=== PATIENT | female | born 1980 | race Caucasian/White ===

== ENCOUNTER 2017-02-10 16:21 | Emergency (ER) | payer OTHER ==
--- NOTE | 2017-02-10 17:37 | DIAGNOSTIC IMAGING REPORT ---
PROCEDURE: XR CHEST 2 VIEW INDICATION: CHEST PAIN TECHNIQUE: PA and lateral views. COMPARISON: None. FINDINGS: Lungs are clear. Heart and mediastinum are normal. Thorax is normal. IMPRESSION: 1. Negative chest.
--- NOTE | 2017-02-10 18:19 | ED NURSING NOTES ---
Clinical Report - Nurses [facility] [address] [place] [address] 02/10/2017 16:23 [id number] Triage time 16:Feb 10 2017. Acuity: LEVEL 3. Chief Complaint: CHEST PAIN. Alert. No acute distress. BLANCA COMA SCORE: [place] Coma Scale: 15- eyes open spontaneously (4); best verbal response- oriented x 4 (5); best motor response- obeys commands (6). --16:32 Radha Meyer R.N. 16:26 02/10/17. BP: 128/69. HR: 88. RR: 11. O2 saturation: 99%. Temp: 98.2 F. Pain level now: 07/13. --16:32 Radha Meyer R.N. Weight: 96.1 kg stated. Height/Length: 65 inches Per Patient. BMI: 35.3. --16:30 Radha Meyer R.N. Medications Hydrocodone-Acetaminophen Oral. --16:27 Radha Meyer R.N. Estradiol Oral. --16:28 Radha Meyer R.N. CeleXA Oral. --16:28 Radha Meyer R.N. Medication/allergy information source: the patient. --16:32 Radha Meyer R.N. Allergies Tramadol. --16:28 Radha Meyer R.N. Percocet. --16:29 Radha Meyer R.N. History Arrived by private vehicle. Historian: patient. Accompanied by family. Onset. (3 days ago). She has had difficulty breathing, nausea and a cough. 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 Seen within the last 30 days in a clinic; labs done- CBC, chemistries and other tests; EKG done. (hydrocodone). PAST MEDICAL HX: Immunizations: up-to-date. SOCIAL HX: Current every day heavy tobacco smoker (cigarette)- 1 pack per day. No alcohol use or drug use. No infectious disease exposure. SELF HARM ASSESSMENT: A self harm assessment was performed. The patient answered "no" to the question "Do you have thoughts of harming or killing yourself?". FALL RISK ASSESSMENT: Fall risk assessment completed. No fall risk identified. NUTRITIONAL RISK ASSESSMENT: The nutritional risk assessment revealed no deficiencies. FUNCTIONAL ASSESSMENT: Functional assessment: no impairments noted. LEARNING NEEDS ASSESSMENT: The learning needs assessment revealed no barriers. ABUSE ASSESSMENT: Abuse assessment: The patient was asked "Do you feel safe in your home?". SKIN INTEGRITY ASSESSMENT: Skin integrity risk assessment completed. No skin integrity risk identified. --16:32 Radha Meyer R.N. PROBLEMS: Sick Contact. Constipation. Abdominal Pain. Hormone issues. Cholecystitis. Abd pain. --16:30 Radha Meyer R.N. ADDITIONAL SURGERIES: Cholecystectomy. Hernia Repair. Hysterectomy. Knee Surgery. Tubal Ligation. --16:30 Radha Meyer R.N. Interventions ID band on patient. To room. --16:32 Radha Meyer R.N. PHYSICAL ASSESSMENT GENERAL / NEURO / PSYCH: Alert. Oriented X 4. Appears in pain. RESPIRATORY: Respirations not labored. Mid- and lower sternal tenderness. Breath sounds within normal limits. CVS: Heart sounds within normal limits. Capillary refill less than 2 seconds. GI / : Abdomen soft and nontender. EXTREMITIES: No lower extremity edema. SKIN: Skin is warm and dry. --16:34 Radha Meyer R.N. NURSING PROGRESS NOTES quality assurance monitor and pulse oximeter placed on patient; quality assurance monitor- Lead II; monitor alarms on. Patient gowned. Head of bed elevated. Patient identifiers checked. Call light placed in reach. Side rails up x 1. Bed placed in lowest position. Brakes of bed on. --16:35 Radha Meyre R.N. EKG time: (1722). EKG was ordered, performed by a tech and shown to the ED physician. --17:21 Yasmin Thomas ER Tech1 18:27 02/10/2017 Hydrocodone-APAP (Hydrocodone-Acetaminophen) PO 5/325 mg Tablets 1 tab given. Allergies verified, confirmed 5 rights and sedative warning given to the patient. --18:27 Radha Meyer R.N. DISPOSITION / DISCHARGE Departure time: 18:Feb 10 2017. Condition at departure: unchanged. No learning barriers present. Reviewed medication(s) side effects, precautions, dosing and course information. Prescription(s) given to the patient. Reviewed referral to a primary care physician. Patient verbalized understanding. Written instructions provided in Montenegrin. Discharge instructions not provided and reviewed with the patient. The patient was discharged home and accompanied by spouse. She left the Emergency Department ambulatory and via private vehicle. Spouse driving. FALL RISK ASSESSMENT: Fall risk assessment completed. No fall risk identified. --18:30 Radha Meyer R.N. 18:28 02/10/17. BP: 127/72. HR: 77. RR: 16. O2 saturation: 95%. Pain level now: 10. --18:30 Radha Meyer R.N. Locked/Released at 02/11/2017 13:26 by Radha Meyer R.N.
--- NOTE | 2017-02-10 18:19 | ED ORDER SUMMARY ---
..... Patient: CHRISTINA LEOS OrderSheet [facility] VisitID: [id number] [address] [place] [address] 36y, F Registration Date/Time: 02/10/2017 ORDER SHEET Weight: 96.1 kg (stated) Allergies: Tramadol, Percocet GENERAL ORDERS: Chest 2V Urgent (16:53 02/10/2017 HBivens A.R.N.P.) (Ack 16:58 TBergley) (17:34 LNations ER Tech1) EKG - ER Stat (16:53 02/10/2017 HBivens A.R.N.P.) (Ack 16:58 TBergley) (17:06 LNations ER Tech1) MEDICATION ORDERS: Hydrocodone-APAP PO 5/325 mg (NOW, HIGH ALERT MEDICATION) (18:17 02/10/2017 HBivens A.R.N.P.) (18:27 Lidia Crawford.NLavinia) IV FLUIDS: ORDER SHEET NOTES: [Electronically signed by Lottie BarlowR.N.PLavinia (19:15 02/10/2017)] [Electronically signed by Radha Meyer R.N. (13:26 02/11/2017)] [Electronically locked/signed by Radha Meyer R.N. (13:26 02/11/2017)]
--- NOTE | 2017-02-10 18:19 | ED NURSING NOTES ---
Clinical Report - Nurses [facility] [address] [place] [address] 02/10/2017 16:23 [id number] Triage time 16:Feb 10 2017. Acuity: LEVEL 3. Chief Complaint: CHEST PAIN. Alert. No acute distress. BLANCA COMA SCORE: [place] Coma Scale: 15- eyes open spontaneously (4); best verbal response- oriented x 4 (5); best motor response- obeys commands (6). --16:32 Radha Meyer R.N. 16:26 02/10/17. BP: 128/69. HR: 88. RR: 11. O2 saturation: 99%. Temp: 98.2 F. Pain level now: 07/13. --16:32 Radha Meyer R.N. Weight: 96.1 kg stated. Height/Length: 65 inches Per Patient. BMI: 35.3. --16:30 Radha Meyer R.N. Medications Hydrocodone-Acetaminophen Oral. --16:27 Radha Meyer R.N. Estradiol Oral. --16:28 Radha Meyer R.N. CeleXA Oral. --16:28 Radha Meyer R.N. Medication/allergy information source: the patient. --16:32 Radha Meyer R.N. Allergies Tramadol. --16:28 Radha Meyer R.N. Percocet. --16:29 Radha Meyer R.N. History Arrived by private vehicle. Historian: patient. Accompanied by family. Onset. (3 days ago). She has had difficulty breathing, nausea and a cough. 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 Seen within the last 30 days in a clinic; labs done- CBC, chemistries and other tests; EKG done. (hydrocodone). PAST MEDICAL HX: Immunizations: up-to-date. SOCIAL HX: Current every day heavy tobacco smoker (cigarette)- 1 pack per day. No alcohol use or drug use. No infectious disease exposure. SELF HARM ASSESSMENT: A self harm assessment was performed. The patient answered "no" to the question "Do you have thoughts of harming or killing yourself?". FALL RISK ASSESSMENT: Fall risk assessment completed. No fall risk identified. NUTRITIONAL RISK ASSESSMENT: The nutritional risk assessment revealed no deficiencies. FUNCTIONAL ASSESSMENT: Functional assessment: no impairments noted. LEARNING NEEDS ASSESSMENT: The learning needs assessment revealed no barriers. ABUSE ASSESSMENT: Abuse assessment: The patient was asked "Do you feel safe in your home?". SKIN INTEGRITY ASSESSMENT: Skin integrity risk assessment completed. No skin integrity risk identified. --16:32 Radha Meyer R.N. PROBLEMS: Sick Contact. Constipation. Abdominal Pain. Hormone issues. Cholecystitis. Abd pain. --16:30 Radha Meyer R.N. ADDITIONAL SURGERIES: Cholecystectomy. Hernia Repair. Hysterectomy. Knee Surgery. Tubal Ligation. --16:30 Radha Meyer R.N. Interventions ID band on patient. To room. --16:32 Radha Meyer R.N. PHYSICAL ASSESSMENT GENERAL / NEURO / PSYCH: Alert. Oriented X 4. Appears in pain. RESPIRATORY: Respirations not labored. Mid- and lower sternal tenderness. Breath sounds within normal limits. CVS: Heart sounds within normal limits. Capillary refill less than 2 seconds. GI / : Abdomen soft and nontender. EXTREMITIES: No lower extremity edema. SKIN: Skin is warm and dry. --16:34 Radha Meyer R.N. NURSING PROGRESS NOTES phototypesetting equipment monitor and pulse oximeter placed on patient; playground monitor- Lead II; monitor alarms on. Patient gowned. Head of bed elevated. Patient identifiers checked. Call light placed in reach. Side rails up x 1. Bed placed in lowest position. Brakes of bed on. --16:35 Radha Meyer R.N. EKG time: (1722). EKG was ordered, performed by a tech and shown to the ED physician. --17:21 Yasmin Thomas ER Tech1 18:27 02/10/2017 Hydrocodone-APAP (Hydrocodone-Acetaminophen) PO 5/325 mg Tablets 1 tab given. Allergies verified, confirmed 5 rights and sedative warning given to the patient. --18:27 Radha Meyer R.N. DISPOSITION / DISCHARGE Departure time: 18:Feb 10 2017. Condition at departure: unchanged. No learning barriers present. Reviewed medication(s) side effects, precautions, dosing and course information. Prescription(s) given to the patient. Reviewed referral to a primary care physician. Patient verbalized understanding. Written instructions provided in [place]ian. Discharge instructions not provided and reviewed with the patient. The patient was discharged home and accompanied by spouse. She left the Emergency Department ambulatory and via private vehicle. Spouse driving. FALL RISK ASSESSMENT: Fall risk assessment completed. No fall risk identified. --18:30 Radha Meyer R.N. 18:28 02/10/17. BP: 127/72. HR: 77. RR: 16. O2 saturation: 95%. Pain level now: 10. --18:30 Radha Meyer R.N. Locked/Released at 02/11/2017 13:26 by Radha Meyer R.N.
--- NOTE | 2017-02-10 18:19 | ED ORDER SUMMARY ---
..... Patient: CHRISTINA LEOS OrderSheet [facility] VisitID: [id number] [address] [place] [address] 36y, F Registration Date/Time: 02/10/2017 ORDER SHEET Weight: 96.1 kg (stated) Allergies: Tramadol, Percocet GENERAL ORDERS: Chest 2V Urgent (16:53 02/10/2017 HBivens A.R.N.P.) (Ack 16:58 TBergley) (17:34 LNations ER Tech1) EKG - ER Stat (16:53 02/10/2017 HBivens A.R.N.P.) (Ack 16:58 TBergley) (17:06 LNations ER Tech1) MEDICATION ORDERS: Hydrocodone-APAP PO 5/325 mg (NOW, HIGH ALERT MEDICATION) (18:17 02/10/2017 HBivens A.R.N.P.) (18:27 Lidia Crawford.NLavinia) IV FLUIDS: ORDER SHEET NOTES: [Electronically signed by Lottie BarlowR.N.PLavinia (19:15 02/10/2017)] [Electronically signed by Radha Meyer R.N. (13:26 02/11/2017)] [Electronically locked/signed by Radha Meyer R.N. (13:26 02/11/2017)]
--- NOTE | 2017-02-10 18:19 | ED CLINICAL REPORT ---
Clinical Report - Physicians/Mid Levels [facility] [address] [place] [address] 02/10/2017 16:23 Patient: CHRISTINA LEOS Time Seen: 1640; initial patient contact, initial documentation, patient care assumed. Arrived- By private vehicle. Historian- patient. HISTORY OF PRESENT ILLNESS Chief Complaint: CHEST PAIN and DISCOMFORT. At its maximum, severity described as severe. When seen in the E.D., severity described as severe. This started about 3 days ago and is still present. It was abrupt in onset and has been constant. It is described as sharp and "pain" and it is described as located in the central chest area. No nausea, vomiting or diaphoresis. She has had difficulty breathing. Similar symptoms previously: None. Recent medical care: The patient was seen recently in the office. ( went to yesterday, full work up done including blood work, for heart attack and blood clot, given shot of toradol, which didn't help, no better and here today, was told it was something to do with her cartilage of her chest and inflammation). REVIEW OF SYSTEMS No fever, cough or pedal edema. All systems otherwise negative, except as recorded above. PAST HISTORY See nurses notes. PROBLEMS: Sick Contact. Constipation. Abdominal Pain. Hormone issues. Cholecystitis. Abd pain. --16:30 Radha Meyer R.N. ADDITIONAL SURGERIES: Cholecystectomy. Hernia Repair. Hysterectomy. Knee Surgery. Tubal Ligation. --16:30 Radha Meyer R.N. SOCIAL HISTORY Heavy tobacco smoker. No alcohol use or drug use. No recent travel. Is a local resident. FAMILY HISTORY Negative. ADDITIONAL NOTES The nursing notes have been reviewed with agreement regarding the chief complaint, HPI, ROS, PMH and patient medications and allergies. PHYSICAL EXAM Vital Signs: 02/10/2017 16:26 BP: 128/69. HR: 88. RR: 11. O2 saturation: 99%. Temp: 98.2 F. Pain level now: 07/13. Have been reviewed as abnormal and do not appear to be correct. Blood pressure normal. Heart rate normal. Temperature normal. Oxygen saturation normal. Appearance: Alert. Oriented X3. Anxious. Eyes: Pupils equal, round and reactive to light. Eyes normal inspection. Neck: Normal inspection. Neck supple. CVS: Normal heart rate and rhythm. Heart sounds normal. Pulses normal. Respiratory: No respiratory distress. Chest tender. Chest pain reproducible with palpation of the costal cartilage, sternum and anterior chest wall, with movement of the trunk and with deep breathing. Breath sounds normal. Abdomen: Mildly obese. Back: Normal external inspection. Skin: Skin warm and dry. Normal skin color. No rash. Normal skin turgor. Extremities: Extremities exhibit normal ROM. No lower extremity edema. Neuro: Oriented X 3. No motor deficit. No sensory deficit. LABS, X-RAYS, AND EKG EKG: EKG time: (1721). No acute process. No acute ischemia. Normal EKG. Rate: 81. Normal EKG. The study has been interpreted contemporaneously by me (and dr nelson). The EKG appears to be a good tracing. Interpretation time: 1723. Chest X-ray: Normal Chest X-Ray. (IMPRESSION: 1. Negative chest. Electronically Final signed by:Get Wilkerson MD 02/10/2017 5:37:39 PM). The X-rays were interpreted by the radiologist and contemporaneously by me. PROGRESS AND PROCEDURES Course of Care: records from drs office yesterday sent over via fax, and reviewed, ekg no changes from today, labs normal. 02/10/2017 18:28 BP: 127/72. HR: 77. RR: 16. O2 saturation: 95%. Pain level now: 8/10. Vital Signs: have been reviewed as normal and appear to be correct. Patient counseled in person regarding the patient's stable condition, test results and diagnosis. Differential Diagnosis: I considered muscle strain, costochondritis, myositis, pleurisy, myocardial infarction, intermediate coronary syndrome, unstable angina, angina, pericarditis, pulmonary embolism, pneumonia, lung cancer, gastroesophageal reflux disease, esophagitis and esophageal spasm as a possible cause of chest pain in this patient. This is a partial list of diagnoses considered. Above considerations are based on history, physical exam, reassessment, X-Ray data and EKG. Differential diagnosis was discussed with patient. Disposition: Discharged home in good and improved condition (18:19). Condition: good and stable. CLINICAL IMPRESSION Chest wall pain .12 lead EKG performed. INSTRUCTIONS Warnings: GENERAL WARNINGS: Return or contact your physician immediately if your condition worsens or changes unexpectedly, if not improving as expected, or if other problems arise. SPECIFICALLY, return if you develop chest, neck, jaw, shoulder, arm, or back pain, difficulty breathing, a fluttering sensation in your chest, lightheadedness, fainting, excessive fatigue, or sudden sweating. Prescription Medications: Naproxen 500 mg tablets: take 1 orally every 12 hours as needed for pain. Dispense twenty (20). No refills. [place] 5 mg / 325 mg tablets: take 1 orally every 6 hours as needed for pain. Dispense five (5). No refill. Follow-up: Follow up with your doctor in about two days even if well. Call for an appointment. Summary of care provided to patient. Understanding of the discharge instructions verbalized by patient. (Electronically signed by Lottie Barlow A.R.N.P. 02/10/2017 19:15)
--- NOTE | 2017-02-11 13:26 | ED MAR SUMMARY ---
..... Medication Administration Record [facility] [address] [place] [address] Patient: CHRISTINA LEOS Visit ID: [id number] 36y, F Weight: 96.1 kg Height/Length: 65 in BMI: 35.3 ALLERGIES: Percocet, Tramadol Given 18:27 02/10/2017 Radha Meyer R.N. Medication Administered: HYDROCODONE-APAP [PO] (HYDROCODONE-ACETAMINOPHEN), Dose: 1 tab 5/325 mg Tablets PO. Medication Ordered: Hydrocodone-APAP PO 5/325 mg (NOW, HIGH ALERT MEDICATION).
--- NOTE | 2017-02-11 13:26 | ED MAR SUMMARY ---
..... Medication Administration Record [facility] [address] [place] [address] Patient: CHRISTINA LEOS Visit ID: [id number] 36y, F Weight: 96.1 kg Height/Length: 65 in BMI: 35.3 ALLERGIES: Percocet, Tramadol Given 18:27 02/10/2017 Radha Meyer R.N. Medication Administered: HYDROCODONE-APAP [PO] (HYDROCODONE-ACETAMINOPHEN), Dose: 1 tab 5/325 mg Tablets PO. Medication Ordered: Hydrocodone-APAP PO 5/325 mg (NOW, HIGH ALERT MEDICATION).
--- NOTE | 2017-02-11 13:26 | ED MED RECONCILIATION SUMMARY ---
Patient: CHRISTINA LEOS Medication Reconciliation Report [facility] VisitID: [id number] [address] [place] [address] 36y, F Registration Date/Time: 02/10/2017 Weight: 96.1 kg Height/Length: 65 in. BMI: 35.3 ALLERGIES: Percocet, Tramadol The patient's Home Medications are listed below: THE FOLLOWING MEDICATIONS NEED TO BE RECONCILED: CeleXA Oral Estradiol Oral Hydrocodone-Acetaminophen Oral The source(s) of the original Home Medication information: patient The following Medications were given to the patient in the Emergency Department: Hydrocodone-APAP [PO] PO 1 tab, administered: 02/10/2017 6:27:00 PM The following Medications were prescribed to the patient: Naproxen 500 mg tablets: take 1 orally every 12 hours as needed for pain. Dispense twenty (20). No refills. -- Ltotie Barlow, A.R.N.P. [place] 5 mg / 325 mg tablets: take 1 orally every 6 hours as needed for pain. Dispense five (5). No refill. -- Lottie Barlow, A.R.N.P.
--- NOTE | 2017-02-11 13:26 | ED DISCHARGE INSTRUCTIONS ---
Patient: CHRISTINA LEOS General Instructions [facility] VisitID: [id number] [place] [address] 36y, F Registration Date/Time: 02/10/2017 Chest wall pain .12 lead EKG performed. INSTRUCTIONS Warnings: GENERAL WARNINGS: Return or contact your physician immediately if your condition worsens or changes unexpectedly, if not improving as expected, or if other problems arise. SPECIFICALLY, return if you develop chest, neck, jaw, shoulder, arm, or back pain, difficulty breathing, a fluttering sensation in your chest, lightheadedness, fainting, excessive fatigue, or sudden sweating. Prescription Medications: Naproxen 500 mg tablets: take 1 orally every 12 hours as needed for pain. Dispense twenty (20). No refills. [place] 5 mg / 325 mg tablets: take 1 orally every 6 hours as needed for pain. Dispense five (5). No refill. Follow-up: Follow up with your doctor in about two days even if well. Call for an appointment. Summary of care provided to patient. Understanding of the discharge instructions verbalized by patient. ADDITIONAL INFORMATION Chest Wall Pain: Costochondritis The chest pain that you have had today is caused by Costochondritis. This condition is due to an inflammation of the cartilage joining the ribs to the breastbone. It is not caused by heart or lung problems. Although the exact cause for costochondritis is not known, it often occurs during times of emotional stress. It can be painful, but it is not dangerous. It usually disappears within one to two weeks, but may recur. Rarely, a more serious condition may cause symptoms similar to costochondritis; therefore, watch for the warning signs listed below. Home Care: If you feel that emotional stress is a cause of your condition, try to identify sources of that stress. It may not be obvious! Learn ways to deal with the stress in your life such as regular exercise, muscle relaxation, meditation, or simply taking time out for yourself. For more information about this, consult your doctor or go to a local bookstore and review books and tapes available on the subject of stress reduction. You may use acetaminophen (Tylenol) or ibuprofen (Motrin, Advil) to control pain, unless another pain medicine was prescribed. [ NOTE: If you have liver disease or ever had a stomach ulcer, talk with your doctor before using these medicines.] The use of heat (hot wet compress or heating pad) with or without local analgesic creams (Deep Heat Rub, Jaron Rodriguez) will be helpful to reduce pain. Follow Up with your doctor as directed or sooner if you do not start to improve within the next two days. Get Prompt Medical Attention if any of the following occur: A change in the type of pain: if it feels different, becomes more severe, lasts longer, or spreads into your shoulder, arm, neck, jaw or back Shortness of breath or increased pain with breathing Weakness, dizziness, or fainting Cough with dark colored sputum (phlegm) or blood Abdominal pain Dark red or black stools Fever of 100.4F (38C) or higher, or as directed by your healthcare provider Naproxen Sodium Oral tablet What is this medicine? NAPROXEN (na PROX en) is a non-steroidal anti-inflammatory drug (NSAID). It is used to reduce swelling and to treat pain. This medicine may be used for dental pain, headache, or painful monthly periods. It is also used for painful joint and muscular problems such as arthritis, tendinitis, bursitis, and gout. How should I use this medicine? Take this medicine by mouth with a glass of water. Follow the directions on the prescription label. Take it with food if your stomach gets upset. Try to not lie down for at least 10 minutes after you take it. Take your medicine at regular intervals. Do not take your medicine more often than directed. Long-term, continuous use may increase the risk of heart attack or stroke. A special MedGuide will be given to you by the pharmacist with each prescription and refill. Be sure to read this information carefully each time. Talk to your research home economist regarding the use of this medicine in children. Special care may be needed. What side effects may I notice from receiving this medicine? Side effects that you should report to your doctor or health intensive care ambulance paramedic as soon as possible: black or bloody stools, blood in the urine or vomit blurred vision chest pain difficulty breathing or wheezing nausea or vomiting severe stomach pain skin rash, skin redness, blistering or peeling skin, hives, or itching slurred speech or weakness on one side of the body swelling of eyelids, throat, lips unexplained weight gain or swelling unusually weak or tired yellowing of eyes or skin Side effects that usually do not require medical attention (report to your doctor or health intensive care ambulance paramedic if they continue or are bothersome): constipation headache heartburn What may interact with this medicine? alcohol aspirin cidofovir diuretics lithium methotrexate other drugs for inflammation like ketorolac or prednisone pemetrexed probenecid warfarin What if I miss a dose? If you miss a dose, take it as soon as you can. If it is almost time for your next dose, take only that dose. Do not take double or extra doses. Where should I keep my medicine? Keep out of the reach of children. Store at room temperature between 15 and 30 degrees C (59 and 86 degrees F). Keep container tightly closed. Throw away any unused medicine after the expiration date. What should I tell my health care provider before I take this medicine? They need to know if you have any of these conditions: asthma cigarette smoker drink more than 3 alcohol containing drinks a day heart disease or circulation problems such as heart failure or leg edema (fluid retention) high blood pressure kidney disease liver disease stomach bleeding or ulcers an unusual or allergic reaction to naproxen, aspirin, other NSAIDs, other medicines, foods, dyes, or preservatives or trying to get breast-feeding What should I watch for while using this medicine? Tell your doctor or health intensive care ambulance paramedic if your pain does not get better. Talk to your doctor before taking another medicine for pain. Do not treat yourself. This medicine does not prevent heart attack or stroke. In fact, this medicine may increase the chance of a heart attack or stroke. The chance may increase with longer use of this medicine and in people who have heart disease. If you take aspirin to prevent heart attack or stroke, talk with your doctor or health intensive care ambulance paramedic. Do not take other medicines that contain aspirin, ibuprofen, or naproxen with this medicine. Side effects such as stomach upset, nausea, or ulcers may be more likely to occur. Many medicines available without a prescription should not be taken with this medicine. This medicine can cause ulcers and bleeding in the stomach and intestines at any time during treatment. Do not smoke cigarettes or drink alcohol. These increase irritation to your stomach and can make it more susceptible to damage from this medicine. Ulcers and bleeding can happen without warning symptoms and can cause . You may get drowsy or dizzy. Do not drive, use machinery, or do anything that needs mental alertness until you know how this medicine affects you. Do not stand or sit up quickly, especially if you are an older patient. This reduces the risk of dizzy or fainting spells. This medicine can cause you to bleed more easily. Try to avoid damage to your teeth and gums when you brush or floss your teeth. Hydrocodone Bitartrate, Acetaminophen Oral tablet What is this medicine? ACETAMINOPHEN; HYDROCODONE (a set a CHIDI jaimie fen; ariana droe KOE done) is a pain reliever. It is used to treat mild to moderate pain. How should I use this medicine? Take this medicine by mouth. Swallow it with a full glass of water. Follow the directions on the prescription label. If the medicine upsets your stomach, take the medicine with food or milk. Do not take more than you are told to take. Talk to your research home economist regarding the use of this medicine in children. This medicine is not approved for use in children. What side effects may I notice from receiving this medicine? Side effects that you should report to your doctor or health intensive care ambulance paramedic as soon as possible: allergic reactions like skin rash, itching or hives, swelling of the face, lips, or tongue breathing problems confusion feeling faint or lightheaded, falls stomach pain yellowing of the eyes or skin Side effects that usually do not require medical attention (report to your doctor or health intensive care ambulance paramedic if they continue or are bothersome): nausea, vomiting stomach upset What may interact with this medicine? alcohol antihistamines isoniazid medicines for depression, anxiety, or psychotic disturbances medicines for sleep muscle relaxants naltrexone narcotic medicines (opiates) for pain phenobarbital ritonavir tramadol What if I miss a dose? If you miss a dose, take it as soon as you can. If it is almost time for your next dose, take only that dose. Do not take double or extra doses. Where should I keep my medicine? Keep out of the reach of children. This medicine can be abused. Keep your medicine in a safe place to protect it from theft. Do not share this medicine with anyone. Selling or giving away this medicine is dangerous and against the law. Store at room temperature between 15 and 30 degrees C (59 and 86 degrees F). Protect from light. Keep container tightly closed. Throw away any unused medicine after the expiration date. Discard unused medicine and used packaging carefully. Pets and children can be harmed if they find used or lost packages. What should I tell my health care provider before I take this medicine? They need to know if you have any of these conditions: brain tumor Crohn's disease, inflammatory bowel disease, or ulcerative colitis drink more than 3 alcohol-containing drinks per day drug abuse or addiction head injury heart or circulation problems kidney disease or problems going to the bathroom liver disease lung disease, asthma, or breathing problems an unusual or allergic reaction to acetaminophen, hydrocodone, other opioid analgesics, other medicines, foods, dyes, or preservatives or trying to get breast-feeding What should I watch for while using this medicine? Tell your doctor or health intensive care ambulance paramedic if your pain does not go away, if it gets worse, or if you have new or a different type of pain. You may develop tolerance to the medicine. Tolerance means that you will need a higher dose of the medicine for pain relief. Tolerance is normal and is expected if you take the medicine for a long time. Do not suddenly stop taking your medicine because you may develop a severe reaction. Your body becomes used to the medicine. This does NOT mean you are addicted. Addiction is a behavior related to getting and using a drug for a non-medical reason. If you have pain, you have a medical reason to take pain medicine. Your doctor will tell you how much medicine to take. If your doctor wants you to stop the medicine, the dose will be slowly lowered over time to avoid any side effects. You may get drowsy or dizzy when you first start taking the medicine or change doses. Do not drive, use machinery, or do anything that may be dangerous until you know how the medicine affects you. Stand or sit up slowly. There are different types of narcotic medicines (opiates) for pain. If you take more than one type at the same time, you may have more side effects. Give your health care provider a list of all medicines you use. Your doctor will tell you how much medicine to take. Do not take more medicine than directed. Call emergency for help if you have problems breathing. The medicine will cause constipation. Try to have a bowel movement at least every 2 to 3 days. If you do not have a bowel movement for 3 days, call your doctor or health intensive care ambulance paramedic. Too much acetaminophen can be very dangerous. Do not take Tylenol (acetaminophen) or medicines that contain acetaminophen with this medicine. Many non-prescription medicines contain acetaminophen. Always read the labels carefully. You have been given the following additional information: Chest Wall Pain, Costochondritis Naproxen Sodium Oral tablet Hydrocodone Bitartrate, Acetaminophen Oral tablet (Electronically signed by Lottie Barlow A.R.N.P. 02/10/2017 19:15)
--- NOTE | 2017-02-11 13:26 | ED MED RECONCILIATION SUMMARY ---
Patient: CHRISTINA LEOS Medication Reconciliation Report [facility] VisitID: [id number] [address] [place] [address] 36y, F Registration Date/Time: 02/10/2017 Weight: 96.1 kg Height/Length: 65 in. BMI: 35.3 ALLERGIES: Percocet, Tramadol The patient's Home Medications are listed below: THE FOLLOWING MEDICATIONS NEED TO BE RECONCILED: CeleXA Oral Estradiol Oral Hydrocodone-Acetaminophen Oral The source(s) of the original Home Medication information: patient The following Medications were given to the patient in the Emergency Department: Hydrocodone-APAP [PO] PO 1 tab, administered: 02/10/2017 6:27:00 PM The following Medications were prescribed to the patient: Naproxen 500 mg tablets: take 1 orally every 12 hours as needed for pain. Dispense twenty (20). No refills. -- Lottie Barlow, A.R.N.P. [place] 5 mg / 325 mg tablets: take 1 orally every 6 hours as needed for pain. Dispense five (5). No refill. -- Lottie Barlow, A.R.N.P.
== END 2017-02-10 18:35 | disposition home or self-care (01) ==
LOC: ED SRH 16:21
DX: R07.89 Other chest pain (principal); F17.210 Nicotine dependence, cigarettes, uncomplicated

== ENCOUNTER 2017-02-21 12:10 | Emergency (ER) | payer OTHER ==
--- NOTE | 2017-02-21 13:34 | DIAGNOSTIC IMAGING REPORT ---
PROCEDURE: CT ABD/PELVIS WITH CONTRAST INDICATION: Abdominal and epigastric pain. Nausea. Prior hysterectomy, cholecystectomy, oophorectomy, and ventral abdominal wall hernia repair. TECHNIQUE: 135 ml of Isovue 300 were injected intravenously and axial images were obtained of the entire abdomen and pelvis with sagittal and coronal reformations. COMPARISON: Comparison is made to CT abdomen and pelvis on 08/31/2016. FINDINGS: ABDOMEN: Cholecystectomy (surgical clips). Liver, spleen, pancreas, kidneys, and aorta are normal. Bowel pattern is normal, including appendix. There is a 1.5 cm midline abdominal wall hernia (3 cm above the umbilicus) containing intra-abdominal lipomatous tissue. PELVIS: Status post hysterectomy. Pelvic structures are otherwise normal. No evidence of free fluid. IMPRESSION: 1. Status post cholecystectomy and hysterectomy. 2. There is a 1.5 cm upper abdominal wall hernia defect (3 cm above the umbilicus) which contains lipomatous tissue. No change. 3. Otherwise negative CT abdomen and pelvis. 4. Findings discussed with TAM Farr. All CT scans at this facility use dose modulation, iterative reconstruction, and/or weight-based dosing when appropriate to reduce radiation dose to as low as reasonably achievable.
--- NOTE | 2017-02-21 13:43 | ED CLINICAL REPORT ---
Clinical Report - Physicians/Mid Levels [facility] [address] [place] [address] 02/21/2017 12:11 Patient: CHRISTINA LEOS Time Seen: 12:23. Arrived- By private vehicle. Historian- patient. HISTORY OF PRESENT ILLNESS Chief Complaint: ABDOMINAL PAIN. At its maximum, severity described as 8 / 10. Modifying factors- worsened by movement. Not relieved by anything. This started 1 weeks ago and is still present and now worse. It is described as "pain". No radiation. It is described as located in the periumbilical area. The patient has had nausea. No vomiting or diarrhea. The patient has an additional complaint of mild abdominal pain (located in the LLQ). Similar symptoms previously: None. Recent medical care: The patient was seen recently at another facility in a clinic. ( today at ;dx w/ UTI, advised to come here to [facility]). REVIEW OF SYSTEMS No constipation, black stools, difficulty with urination, pain with urination or urinary frequency. No bloody stools, fever, chest pain, cough or chills. Denies current . PAST HISTORY See nurses notes. Chronic opiate therapy, disclosed voluntarily by pt (4 vicodin/day) Hx chronic abdominal pain. Has not had urinary calculi. No history of heart disease, lung disease, hypertension or diabetes mellitus. Surgeries: Knee surgery. Prior abdominal surgery: hernia surgery; gall bladder surgery; hysterectomy; tubal ligation. Medications: Bactrim Oral (pt. rx'ed this today has not started. ). CeleXA Oral. Estradiol Oral. Hydrocodone-Acetaminophen Oral. Allergies: Adhesive Tape. Percocet. Tramadol. SOCIAL HISTORY Light tobacco smoker (cigarette)- less than 1/2 a pack per day. No alcohol use or drug use. ADDITIONAL NOTES The nursing notes have been reviewed. PHYSICAL EXAM Vital Signs: 02/21/2017 14:06 BP: 118/68. HR: 67. RR: 16. O2 saturation: 100%. Temp: 98.3 F. 02/21/2017 12:14 BP: 126/87. HR: 87. RR: 16. O2 saturation: 97%. Temp: 97.5 F. Have been reviewed and appear to be correct. Appearance: Alert. Oriented X3. No acute distress. Eyes: Pupils equal, round and reactive to light. Eyes normal inspection. Neck: Normal inspection. Neck supple. CVS: Normal heart rate and rhythm. Heart sounds normal. Respiratory: No respiratory distress. Breath sounds normal. Abdomen: Soft. Mild tenderness in the periumbilical area (just above umbilicus). No guarding, rebound tenderness or Eubanks's sign present. Moderate additional tenderness in the left lower quadrant. No guarding or rebound tenderness. The bowel sounds are not abnormal. No distention. Skin: Skin warm and dry. Normal skin color. Normal skin turgor. Extremities: Extremities exhibit normal ROM. Neuro: Oriented X 3. LABS, X-RAYS, AND EKG Pelvic CT: Hernia noted but stable. No acute findings per Dr Christine. Pelvic CT performed with IV contrast. Study included the lower abdomen and pelvis. The study was interpreted by the radiologist. Laboratory Tests: Laboratory tests have been ordered, with results reviewed and considered in the medical decision making process. UA-Culture if indicated: (JETT: 02/21/2017 12:40) ( MsgRcvd 02/21/2017 13:24) Final results Test Result Flag Units (Reference) URINE COLOR YELLOW URINE APPEARANCE CLEAR URINE GLUCOSE NEGATIVE (NEGATIVE) URINE BILIRUBIN NEGATIVE (NEGATIVE) URINE KETONE NEGATIVE (NEGATIVE) URINE SPECIFIC GRAVITY 1.020 (1.010-1.030) URINE PH 6.0 (5.0-8.0) URINE PROTEIN NEGATIVE (NEGATIVE) URINE UROBILINOGEN 0.2 EU/dL (0.2-1.0) URINE NITRITE NEGATIVE (NEGATIVE) URINE BLOOD TRACE-INTACT (NEGATIVE) URINE LEUK ESTERASE NEGATIVE (NEGATIVE) URINE RBC 3-5 rbc/hpf (0-1) URINE WBC 1-3 wbc/hpf (0-1) URINE EPITHELIAL CELLS 1-3 EPI/hpf (0-5) URINE BACTERIA NONE SEEN (NONE SEEN) URINE COMMENT CULT NOT INDICATED URINE CULTURES ARE SET-UP BASED ON THE FOLLOWING CRITERIA:POSITIVE NITRITEPOSITIVE LEUKOCYTE ESTERASEGREATER THAN 10 WHITE BLOOD CELLSMODERATE (2+) OR GREATER BACTERIA CBC w Diff: (JETT: 02/21/2017 12:40) ( MsgRcvd 02/21/2017 13:03) Final results Test Result Flag Units (Reference) WHITE BLOOD COUNT 9.3 K/uL (4.5-11.5) RED BLOOD COUNT 4.85 M/uL (4.00-5.20) HEMOGLOBIN 14.7 gm/dL (12.0-16.0) HEMATOCRIT 44.4 % (36.0-46.0) MEAN CELL VOLUME 92 fL (80-100) MEAN CORPUSCULAR HGB 30 pg (26-34) MEAN CORPUSCULAR HGB CONC 33 g/dL (31-37) RED CELL DISTRIBUTION WIDTH 13.7 % (11.6-14.8) PLATELET COUNT 264 K/uL (150-400) NEUTROPHIL % 59.6 % (50-75) LYMPH % 29.6 % (25-40) MONO % 7.6 % (3-14) EOSINOPHIL % 2.8 % (0-4) BASOPHIL % 0.4 % (0-2) CMP: (JETT: 02/21/2017 12:40) ( MsgRcvd 02/21/2017 13:06) Final results Test Result Flag Units (Reference) GLUCOSE 97 mg/dL (70-110) BUN 10 mg/dL (7-18) CREATININE 0.7 mg/dL (0.6-1.3) Estimated GFR >60 mL/min Estimated GFR- >60 mL/min Note: Persistent reduction over 3 months in eGFR<60 mL/min/1.73 m2 defines CKD. Patients with eGFR values>=60 mL/min/1.73 m2 may also have CKD if evidence ofpersistent proteinuria. Additional information may be foundat www.kidney.org. SODIUM 140 mmol/L (136-145) POTASSIUM 4.1 mmol/L (3.5-5.1) CHLORIDE 103 mmol/L (98-107) CARBON DIOXIDE 26 mmol/L (21-32) CALCIUM 8.8 mg/dL (8.5-10.1) TOTAL PROTEIN 7.2 g/dL (6.4-8.2) ALBUMIN 3.7 g/dL (3.3-5.0) BILIRUBIN, TOTAL 0.4 mg/dL (0.0-1.0) ALKALINE PHOSPHATASE 112 U/L (46-116) AST (SGOT) 17 U/L (15-37) ALT (SGPT) 32 U/L (12-78) . PROGRESS AND PROCEDURES Course of Care: Note from UC reviewed. Pt feels this is most likely related to hernia -dx w/ ventral or periumb a few years ago that was "small"-this feels same. LLQ pain noted as well. Labs reassuring. Repeat exam stable-findings essentially negative. Potential differentials discussed w pt; she will sched w/ PCP to follow further. Patient is stable. Patient counseled in person regarding the patient's condition, test results, diagnosis and need for additional testing and follow-up. Differential Diagnosis: I considered gastritis, peptic ulcer disease, gastroesophageal reflux disease, acute appendicitis, mesenteric lymphadenitis, diverticulitis, adhesions and hernia as a possible cause of abdominal pain in this patient. This is a partial list of diagnoses considered. Above considerations are based on history, physical exam, past history, reassessment, laboratory data and other information. Differential diagnosis was discussed with patient. Disposition: Discharged. Condition: stable. CLINICAL IMPRESSION Acute periumbilical abdominal pain of unknown cause. Ventral hernia. No obstruction or gangrene. INSTRUCTIONS Off work (Wednesday and Wednesday (February 19 and ). May return Wednesday02/22/17). Drink plenty of fluids. (Your labs are reassuring. No need to fill the antibiotic. CT scan does not show any increase or strangulation of hernia. Appendix normal. See PCP to discuss plan for further eval. Suggest prilosec and heat. Should your pain increase significantly, or you have a temp over 100 or new symptoms, see PCP or return to ER). Warnings: Further evaluation is necessary. Your Current Medications: STOP TAKING THE FOLLOWING MEDICATIONS: Bactrim Oral : pt. rx'ed this today has not started. CONTINUE TAKING THE FOLLOWING MEDICATIONS: CeleXA Oral. Estradiol Oral. Hydrocodone-Acetaminophen Oral. Prescription monitor program consulted. Prescription Medications: Prilosec 20 mg capsules: take 1 capsule orally every 12 hours. Dispense thirty (30). No refill. Follow-up: Follow up with your doctor. Understanding of the discharge instructions verbalized by patient. (Electronically signed by Apurva Tran A.R.N.P. 02/21/2017 14:16)
--- NOTE | 2017-02-21 13:43 | ED ORDER SUMMARY ---
..... Patient: CHRISTINA LEOS OrderSheet [facility] VisitID: [id number] [address] [place] [address] 36y, F Registration Date/Time: 02/21/2017 ORDER SHEET Weight: 97.0 kg (stated) Allergies: Percocet, Tramadol, Adhesive Tape GENERAL ORDERS: CT Abd/Pel w Cont (No) (N/A) (periumbiclical pain; hx of hernia in that area. s/p jenniffer and hyst.) Urgent (12:30 02/21/2017 SThom A.R.N.P.) (Ack 12:32 TBergley) (13:05 SReitz R.N.) CBC w Diff Urgent (12:02/21/2017 SThom A.R.N.P.) (Ack 12:32 TBergley) (12:43 MWinterer R.N.) CMP Urgent (12:02/21/2017 SThom A.R.N.P.) (Ack 12:32 TBergley) (12:43 MWinterer R.N.) UA-Culture if indicated Urgent (12:02/21/2017 SThom A.R.N.P.) (Ack 12:32 TBergley) (12:43 MWinterer R.N.) MEDICATION ORDERS: IV FLUIDS: IV NS with Normal Saline 1 Liter: initial bolus none -, then 500 mL/hr for X1 (NOW); Routine (12:29 02/21/2017 SThom A.R.N.P.) (Ack 12:41 MWinterer R.N.) (12:43 MWinterer R.N.) Toradol IV 30 mg (NOW) (12:02/21/2017 SThom A.R.N.P.) (Ack 12:41 MWinterer R.N.) (12:44 MWinterer R.N.) Zofran IV 4 mg (NOW) (12:02/21/2017 SThom A.R.N.P.) (Ack 12:41 MWinterer R.N.) (12:44 MWinterer R.N.) ORDER SHEET NOTES: [Electronically signed by Corrie Moreno R.N. (14:12 02/21/2017)] [Electronically signed by Apurva Tran (14:16 02/21/2017)] [Electronically locked/signed by Corrie Moreno R.N. (14:12 02/21/2017)]
--- NOTE | 2017-02-21 13:43 | ED ORDER SUMMARY ---
..... Patient: CHRISTINA LEOS OrderSheet [facility] VisitID: [id number] [address] [place] [address] 36y, F Registration Date/Time: 02/21/2017 ORDER SHEET Weight: 97.0 kg (stated) Allergies: Percocet, Tramadol, Adhesive Tape GENERAL ORDERS: CT Abd/Pel w Cont (No) (N/A) (periumbiclical pain; hx of hernia in that area. s/p jenniffer and hyst.) Urgent (12:30 02/21/2017 SThom A.R.N.P.) (Ack 12:32 TBergley) (13:05 SReitz R.N.) CBC w Diff Urgent (12:02/21/2017 SThom A.R.N.P.) (Ack 12:32 TBergley) (12:43 MWinterer R.N.) CMP Urgent (12:02/21/2017 SThom A.R.N.P.) (Ack 12:32 TBergley) (12:43 MWinterer R.N.) UA-Culture if indicated Urgent (12:02/21/2017 SThom A.R.N.P.) (Ack 12:32 TBergley) (12:43 MWinterer R.N.) MEDICATION ORDERS: IV FLUIDS: IV NS with Normal Saline 1 Liter: initial bolus none -, then 500 mL/hr for X1 (NOW); Routine (12:29 02/21/2017 SThom A.R.N.P.) (Ack 12:41 MWinterer R.N.) (12:43 MWinterer R.N.) Toradol IV 30 mg (NOW) (12:02/21/2017 SThom A.R.N.P.) (Ack 12:41 MWinterer R.N.) (12:44 MWinterer R.N.) Zofran IV 4 mg (NOW) (12:02/21/2017 SThom A.R.N.P.) (Ack 12:41 MWinterer R.N.) (12:44 MWinterer R.N.) ORDER SHEET NOTES: [Electronically signed by Corrie Moreno R.N. (14:12 02/21/2017)] [Electronically signed by Apurva Tran (14:16 02/21/2017)] [Electronically locked/signed by Corrie Moreno R.N. (14:12 02/21/2017)]
--- NOTE | 2017-02-21 13:43 | ED NURSING NOTES ---
Clinical Report - Nurses [facility] [address] [place] [address] 02/21/2017 12:11 Patient: CHRISTINA LEOS TRIAGE Triage time 12:14. Acuity: LEVEL 3. Chief Complaint: ABDOMINAL PAIN and NAUSEA. Alert. No acute distress. ( Pt. states she was seen at [facility] today and treated for a UTI and they instructed her to be evaluated in the ED for abd. pain.). SEPSIS SCREEN: Sepsis Screen. Negative (no infection suspected/documented). BLANCA COMA SCORE: [place] Coma Scale: 15- eyes open spontaneously (4); best verbal response- oriented x 4 (5); best motor response- obeys commands (6). --12:20 Corrie Moreno R.N. 12:14 02/21/17. BP: 126/87. HR: 87. RR: 16. O2 saturation: 97%. Temp: 97.5 F. Pain level now 10/10. --12:20 Corrie Moreno R.N. Weight: 97 kg stated. Height/Length: 65 inches Per Patient. BMI: 35.6. --12:15 Corrie Moreno R.N. Medications CeleXA Oral. Estradiol Oral. Hydrocodone-Acetaminophen Oral. --12:19 Corrie Moreno R.N. Bactrim Oral (pt. rx'ed this today has not started. ). --12:19 Corrie Moreno R.N. Allergies Percocet. Tramadol. --12:19 Corrie Moreno R.N. Adhesive Tape. --12:20 Corrie Moreno R.N. History Arrived by private vehicle. Historian: patient. Unaccompanied. Primary physician (Dr. Mane). Onset. (1 week ago and continues to get worse). 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 (Instructed to be seen in ED). PAST MEDICAL HX: Immunizations: up-to-date. SOCIAL HX: Light tobacco smoker (cigarette)- less than 1/2 a pack per day. No alcohol use or drug use. No recent travel. No infectious disease exposure. No known contact with a sick individual. ABUSE ASSESSMENT: Abuse assessment: The patient was asked "Do you feel safe in your home?" and "Has anyone hurt you or threatened to hurt you?". No report of abuse. NUTRITIONAL RISK ASSESSMENT: The nutritional risk assessment revealed no deficiencies. FUNCTIONAL ASSESSMENT: Functional assessment: no impairments noted. --12:20 Corrie Moreno R.N. PROBLEMS: Chest Wall Pain. Sick Contact. Constipation. Abdominal Pain. Hormone issues. Cholecystitis. Abd pain. --12:20 Corrie Moreno R.N. ADDITIONAL SURGERIES: Cholecystectomy. Hernia Repair. Hysterectomy. Knee Surgery. Tubal Ligation. --12:20 Corrie Moreno R.N. Interventions ID band on patient. Ambulatory. --12:20 Corrie Moreno R.N. PHYSICAL ASSESSMENT Ambulatory to room. GENERAL / NEURO / PSYCH: Alert. Appears in no acute distress. HEENT: Mucous membranes are pink. RESPIRATORY: Respirations not labored. CVS: Capillary refill less than 2 seconds. GI / : Abdomen soft. Abdominal tenderness in the periumbilical area. SKIN: Skin is warm and dry. --12:20 Corrie Moreno R.N. NURSING PROGRESS NOTES Patient gowned. Head of bed elevated. Two patient identifiers checked. Call light placed in reach. Side rails up x 2. Bed placed in lowest position. Brakes of bed on. Patient ready for evaluation- chart flagged. --12:20 Corrie Moreno R.N. Patient ID band checked for patient name, birthdate and medical record number: patient confirmed. Instructions provided to collect clean catch urine and patient verbalized understanding. Clean catch urine collected with return of yellow-colored clear urine; sample sent to lab for urinalysis. Specimen labeled in the presence of the patient. --12:41 Corrie Moreno R.N. 12:43 02/21/2017 Site #1 started via IV in the right antecubital space with an 20g angiocath, with aseptic technique and good blood return; one attempt. Blood drawn: rainbow set. Labeled in the presence of the patient and sent to the lab. --12:43 Tri Curtis R.N. 12:43 02/21/2017 Started bag #1 1000 mL IV Fluids IV NS (Saline); at 500 mL/hr over 2 hour(s) via site #1 via IV pump. Allergies verified and confirmed 5 rights. IV patency established. IV site checked: no pain, redness, or swelling. IV flushed thoroughly pre- and post-medication administration. --12:43 Tri Curtis R.N. 12:44 02/21/2017 Toradol IVP 30 mg given over 1 minute(s) via site #1. Allergies verified and confirmed 5 rights. IV patency established. IV site checked: no pain, redness, or swelling. IV flushed thoroughly pre- and post-medication administration. IVP given by RN. --12:44 Tri Curtis R.N. 12:44 02/21/2017 Zofran (Ondansetron HCl) IVP 4 mg given over 1 minute(s) via site #1. Allergies verified and confirmed 5 rights. IV patency established. IV site checked: no pain, redness, or swelling. IV flushed thoroughly pre- and post-medication administration. IVP given by RN. --12:44 Tri Curtis R.N. Patient transported to CT by stretcher with tech. --12:45 Corrie Moreno R.N. 12:47 02/21/17. Patient transported to CT by stretcher with tech. --12:47 Tri Curtis R.N. 13:16 02/21/17. BP: 113/50. HR: 66. RR: 16. O2 saturation: 96%. Pain level now 7/10. --13:16 Corrie Moreno R.N. Reassessment after medication administered. She has had no adverse reaction. Overall patient status- she states feels the same. --13:16 Corrie Moreno R.N. 14:09 02/21/2017 IV Fluids IV NS Discontinued: bag #1 infused. Total amount infused: 600 mL. IV patency established. IV site checked: no pain, redness, or swelling. IV flushed thoroughly. --14:09 Corrie Moreno R.N. DISPOSITION / DISCHARGE 14:06 02/21/17. BP: 118/68. HR: 67. RR: 16. O2 saturation: 100%. Temp: 98.3 F. Pain level now 04/12. --14:09 Corrie Moreno R.N. 14:09 02/21/2017 Site #1 removed upon discharge. Catheter intact. Manual pressure and bandaid applied. --14:09 Corrie Moreno R.N. Condition at departure: stable. No learning barriers present. Discharge instructions provided and reviewed with the patient. Reviewed medication(s) side effects, precautions, dosing and course information. Prescription(s) given to the patient. Reviewed referral to family practice for followup. Patient verbalized understanding. Written instructions provided in [place]. The patient was discharged home and unaccompanied at time of discharge. She left the Emergency Department ambulatory. Medication list reviewed and validated. --14:10 Corrie Moreno R.N. Departure time: 14:10. --14:10 Corrie Moreno R.N. Locked/Released at 02/21/2017 14:12 by Corrie Moreno R.N.
--- NOTE | 2017-02-21 14:16 | ED DISCHARGE INSTRUCTIONS ---
Patient: CHRISTINA LEOS General Instructions [facility] VisitID: [id number] [address] [place] [address] 36y, F Registration Date/Time: 02/21/2017 Acute periumbilical abdominal pain of unknown cause. Ventral hernia. No obstruction or gangrene. INSTRUCTIONS Off work (Wednesday and Wednesday (February 19 and ). May return Wednesday02/22/17). Drink plenty of fluids. (Your labs are reassuring. No need to fill the antibiotic. CT scan does not show any increase or strangulation of hernia. Appendix normal. See PCP to discuss plan for further eval. Suggest prilosec and heat. Should your pain increase significantly, or you have a temp over 100 or new symptoms, see PCP or return to ER). Warnings: Further evaluation is necessary. Your Current Medications: STOP TAKING THE FOLLOWING MEDICATIONS: Bactrim Oral : pt. rx'ed this today has not started. CONTINUE TAKING THE FOLLOWING MEDICATIONS: CeleXA Oral. Estradiol Oral. Hydrocodone-Acetaminophen Oral. Prescription monitor program consulted. Prescription Medications: Prilosec 20 mg capsules: take 1 capsule orally every 12 hours. Dispense thirty (30). No refill. Follow-up: Follow up with your doctor. Understanding of the discharge instructions verbalized by patient. ADDITIONAL INFORMATION Abdominal Pain, Unknown Cause (Female) The exact cause of your abdominal (stomach) pain is not certain. This does not mean that this is something to worry about, or the right tests were not done. Everyone likes to know the exact cause of the problem, but sometimes with abdominal pain, there is no clear-cut cause, and this could be a good thing. The good news is that your symptoms can be treated, and you will feel better. Your condition does not seem serious now; however, sometimes the signs of a serious problem may take more time to appear. For this reason,it is important for you to watch for any new symptoms, problems,or worsening of your condition. Over the next few days, the abdominal pain may come and go, or be continuous. Other common symptoms can include nausea and vomiting. Sometimes it can be difficult to tell if you feel nauseous, you may just feel bad and not associate that feeling with nausea. Constipation, diarrhea, and a fever may go along with the pain. The pain may continue even if treated correctly over the following days. Depending on how things go, sometimes the cause can become clear and may require further or different treatment. Additional evaluations, medications, or tests may be needed. Home care Your health care provider may prescribe medications for pain, symptoms, or an infection. Follow the health care provider's instructions for taking these medications. General care Rest until your next exam. No strenuous activities. Try to find positions that ease discomfort. A small pillow placed on the abdomen may help relieve pain. Something warm on your abdomen (such as a heating pad) may help, but be careful not to burn yourself. Diet Do not force yourself to eat, especially if having cramps, vomiting, or diarrhea. Water is important so you do not get dehydrated. Soup may also be good. Sports drinks may also help, especially if they are not too acidic. Make sure you don't drink sugary drinks as this can make things worse. Take liquids in small amounts. Do not guzzle them. Caffeine sometimes makes the pain and cramping worse. Avoid dairy products if you have vomiting or diarrhea. Don't eat large amounts at a time. Wait a few minutes between bites. Eat a diet low in fiber (called a low-residue diet). Foods allowed include refined breads, white rice, fruit and vegetable juices without pulp, tender meats. These foods will pass more easily through the intestine. Avoid whole-grain foods, whole fruits and vegetables, meats, seeds and nuts, fried or fatty foods, dairy, alcohol and spicy foods until your symptoms go away. Follow-up care Follow up with your health care provider as instructed, or if your pain does not begin to improve in the next 24 hours. When to seek medical care Seek prompt medical care if any of the following occur: Pain gets worse or moves to the right lower abdomen New or worsening vomiting or diarrhea Swelling of the abdomen Unable to pass stool for more than three days Fever of 100.4F (38C) or higher, or as directed by your healthcare provider. Blood in vomit or bowel movements (dark red or black color) Jaundice (yellow color of eyes and skin) Weakness, dizziness Chest, arm, back, neck or jaw pain Unexpected vaginal bleeding or missed period Call 911 Call emergency services if any of the following occur: Trouble breathing Confusion Fainting or loss of consciousness Rapid heart rate Seizure Hernia [Adult] A hernia is a bulge of the intestines or surrounding tissues through a tear in the muscle of the abdomen or groin. This may occur as a result of excessive coughing, heavy lifting or being overweight. It can also occur at the site of prior surgery. When a hernia first appears it may be painful due to stretching and tearing of the muscle fibers. When you lie down, the bulge should reduce in size or disappear completely. If it does not, and you are unable to flatten it with your hand, medical attention is needed at once. Home Care: Avoid heavy lifting and straining or any activities that cause pain in the hernia. Follow Up with your physician as directed by our staff. Get Prompt Medical Attention if any of the following occur: Increasing size of the hernia Increasing pain in the hernia A hernia that does not get smaller when you lie down Hardening of the hernia Abdominal swelling, fever or repeated vomiting Pain moves to the lower right abdomen (just below the waistline) or spreads to the back You have been given the following additional information: Abdominal Pain, Unknown Cause, (Female) Hernia (Inguinal, Ventral, Umbilical) Off work (Wednesday and Wednesday (February 19 and ). May return Wednesday02/22/17). (Electronically signed by Apurva Tran A.R.N.P. 02/21/2017 14:16)
--- NOTE | 2017-02-21 14:16 | ED MAR SUMMARY ---
..... Medication Administration Record [facility] [address] [place] [address] Patient: CHRISTINA LEOS Visit ID: [id number] 36y, F Weight: 97.0 kg Height/Length: 65 in BMI: 35.6 ALLERGIES: Percocet, Tramadol, Adhesive Tape Start 12:43 02/21/2017 Tri Curtis RAdan, Stop 14:09 02/21/2017 Corrie Moreno R.N. Medication Administered: IV NS (SALINE), Dose: IV Fluids over 2 hour(s), Rate: 500 mL/hr, Dispensed: 1000 mL bag, Site: #1 right AC. Medication Ordered: IV NS with Normal Saline 1 Liter: initial bolus none -, then 500 mL/hr for X1 (NOW); Routine. Given 12:44 02/21/2017 Tri Curtis R.N. Medication Administered: TORADOL [IVP], Dose: 30 mg IVP over 1 minute(s), Site: #1 right AC. Medication Ordered: Toradol IV 30 mg (NOW). Given 12:44 02/21/2017 Tri Curtis R.N. Medication Administered: ZOFRAN [IVP] (ONDANSETRON HCL), Dose: 4 mg IVP over 1 minute(s), Site: #1 right AC. Medication Ordered: Zofran IV 4 mg (NOW).
--- NOTE | 2017-02-21 14:16 | ED MAR SUMMARY ---
..... Medication Administration Record [facility] [address] [place] [place] [address] Patient: CHRISTINA LEOS Visit ID: [id number] 36y, F Weight: 97.0 kg Height/Length: 65 in BMI: 35.6 ALLERGIES: Percocet, Tramadol, Adhesive Tape Start 12:43 02/21/2017 Tri Curtis RAdan, Stop 14:09 02/21/2017 Corrie Moreno R.N. Medication Administered: IV NS (SALINE), Dose: IV Fluids over 2 hour(s), Rate: 500 mL/hr, Dispensed: 1000 mL bag, Site: #1 right AC. Medication Ordered: IV NS with Normal Saline 1 Liter: initial bolus none -, then 500 mL/hr for X1 (NOW); Routine. Given 12:44 02/21/2017 Tri Curtis R.N. Medication Administered: TORADOL [IVP], Dose: 30 mg IVP over 1 minute(s), Site: #1 right AC. Medication Ordered: Toradol IV 30 mg (NOW). Given 12:44 02/21/2017 Tri Curtis R.N. Medication Administered: ZOFRAN [IVP] (ONDANSETRON HCL), Dose: 4 mg IVP over 1 minute(s), Site: #1 right AC. Medication Ordered: Zofran IV 4 mg (NOW).
--- NOTE | 2017-02-21 14:16 | ED MED RECONCILIATION SUMMARY ---
Patient: CHRISTINA LEOS Medication Reconciliation Report [facility] VisitID: [id number] [address] [place] [address] 36y, F Registration Date/Time: 02/21/2017 Weight: 97.0 kg Height/Length: 65 in. BMI: 35.6 ALLERGIES: Adhesive Tape, Percocet, Tramadol The patient's Home Medications are listed below: STOP TAKING THE FOLLOWING MEDICATIONS: Bactrim Oral, pt. rx'ed this today has not started. CONTINUE TAKING THE FOLLOWING MEDICATIONS: CeleXA Oral Estradiol Oral Hydrocodone-Acetaminophen Oral The source(s) of the original Home Medication information: Not obtained. The following Medications were given to the patient in the Emergency Department: IV NS IV Fluids bolus 0, then 500 mL/hr, administered: 02/21/2017 12:43:00 PM Toradol [IVP] IVP 30 mg, administered: 02/21/2017 12:44:00 PM Zofran [IVP] IVP 4 mg, administered: 02/21/2017 12:44:00 PM The following Medications were prescribed to the patient: Prilosec 20 mg capsules: take 1 capsule orally every 12 hours. Dispense thirty (30). No refill. -- Apurva Tran A.R.N.P.
--- NOTE | 2017-02-21 14:16 | ED MED RECONCILIATION SUMMARY ---
Patient: CHRISTINA LEOS Medication Reconciliation Report [facility] VisitID: [id number] [address] [place] [address] 36y, F Registration Date/Time: 02/21/2017 Weight: 97.0 kg Height/Length: 65 in. BMI: 35.6 ALLERGIES: Adhesive Tape, Percocet, Tramadol The patient's Home Medications are listed below: STOP TAKING THE FOLLOWING MEDICATIONS: Bactrim Oral, pt. rx'ed this today has not started. CONTINUE TAKING THE FOLLOWING MEDICATIONS: CeleXA Oral Estradiol Oral Hydrocodone-Acetaminophen Oral The source(s) of the original Home Medication information: Not obtained. The following Medications were given to the patient in the Emergency Department: IV NS IV Fluids bolus 0, then 500 mL/hr, administered: 02/21/2017 12:43:00 PM Toradol [IVP] IVP 30 mg, administered: 02/21/2017 12:44:00 PM Zofran [IVP] IVP 4 mg, administered: 02/21/2017 12:44:00 PM The following Medications were prescribed to the patient: Prilosec 20 mg capsules: take 1 capsule orally every 12 hours. Dispense thirty (30). No refill. -- Apurva Tran A.R.N.P.
== END 2017-02-21 14:10 | disposition home or self-care (01) ==
LOC: ED SRH 12:10
DX: K43.9 Ventral hernia without obstruction or gangrene (principal); R10.33 Periumbilical pain; Z79.891 Long term (current) use of opiate analgesic; Z79.899 Other long term (current) drug therapy; F17.210 Nicotine dependence, cigarettes, uncomplicated; Z88.5 Allergy status to narcotic agent; Z91.09 Other allergy status, other than to drugs and biological substances
CPT/HCPCS: 90004; 90100; 95059